=== PATIENT | male | born 1950 | race Caucasian/White ===

== ENCOUNTER 2018-08-10 12:41 | Emergency (ER) | payer MEDICARE, BC ==
[~2018-08-10] VITALS: Ht 182.9 cm; Wt 86.8 kg
[~2018-08-10 12:41] MED LIST: ASPIRIN PO; CIPR250T27 PO; INSU100I9 SQ-INSULIN; INSU100V8 SQ; LOSA1TAB22 PO; METO25TA35 PO; ROSU40TA PO; TAMS0.4C2 PO; TEMA30CA PO; TRAZADONE PO
[2018-08-10] MEDS ORDERED: LORazepam 1MG TABLET PO ONE (13:30)
[2018-08-10] MEDS ORDERED: LORazepam 1MG TABLET ONE (13:35)
--- NOTE | 2018-08-10 13:41 | NUR ---
ASSUMED CARE OF PT. PT PRESENTS TO ED WITH C/O INCREASED ANXIETY, INCREASED BLOOD PRESSURE, AND MINOR ETOH WITHDRAW SYMPTOMS. PT STATES HE WAS AT PCP AND SHE SENT HIM HERE DUE TO HIS SYMPTOMS. PT STATES HE HAS BEEN DECREASING HIS ETOH INTAKE, BUT AT SAME TIME PCP HAS DECREASED HIS ANTI-ANXIETY MEDICATION. STATES CURRENT DOSAGE DOES NOTHING FOR HIM. STATES BECAUSE OF THAT HE HAS INCREASED HIS ETOH USE. STATES HE DRINKS ABOUT 2 GLASSES OF WINE A DAY. LAST DRINK WAS THIS MORNING. MILD AMOUNT OF DISTRESS NOTED. MODERATE ANXIETY NOTED. POC DISCUSSED. PT MEDICATED PER SEP. RIGHTS VERIFIED PRIOR. 3 P'S ADDRESSED. WILL CONTINUE TO MONITOR.
[2018-08-10 13:57] LABS: BASOPHILS # (AUTO) 0.04 x10^3/uL (0-0.1); BASOPHILS % (AUTO) 0 % (0-1); EOSINOPHILS # (AUTO) 0.03 x10^3/uL (0-0.4); EOSINOPHILS % (AUTO) 0 % (1-7); LYMPHOCYTES # (AUTO) 1.62 x10^3/uL (1-3.4); LYMPHOCYTES % (AUTO) 18 % (22-44); MD NO; MEAN CORPUSCULAR HEMOGLOBIN 32.5 pg (27.5-34.5); MEAN CORPUSCULAR HGB CONC 33.5 g/dL (33.2-36.2); MEAN PLATELET VOLUME 7.7 fL (7.4-10.4); MONOCYTES # (AUTO) 0.68 x10^3/uL (0.2-0.8); MONOCYTES % (AUTO) 7 % (2-9); NEUTROPHILS # (AUTO) 6.78 x10^3/uL (1.8-6.8); NEUTROPHILS % (AUTO) 74 % (42-75); PLATELET COUNT 292 x10^3/uL (130-400); RED CELL DISTRIBUTION WIDTH 12.6 % (9.4-14.8)
[2018-08-10 14:04] LABS: ALANINE AMINOTRANSFERASE 71 U/L (12-78); ALBUMIN 4.4 g/dL (3.4-5.0); ANION GAP 10 mmol/L (5-15); CHLORIDE 101 mmol/L (98-107); CREATININE 1.07 mg/dL (0.7-1.3)
[2018-08-10 14:08] LABS: ALKALINE PHOSPHATASE 67 U/L (45-117); BILIRUBIN,TOTAL 0.4 mg/dL (0.2-1.0); TROPONIN I < 0.015 ng/mL (0.000-0.045)
--- NOTE | 2018-08-10 14:20 | NUR ---
MARIZA AT BEDSIDE TO SEE PT.
[2018-08-10 14:30] VITALS: BP 139/78
--- NOTE | 2018-08-10 15:00 | NUR ---
PT GIVEN ED PAPERWORK. PT VERBALIZED UNDERSTANDING. PT AWARE TO FOLLOW UP WITH PCP.
== END 2018-08-10 15:06 | disposition home or self-care (01) ==
LOC: ED 15:00
DX: R42 Dizziness and giddiness (principal); F41.1 Generalized anxiety disorder; F10.10 Alcohol abuse, uncomplicated; E78.00 Pure hypercholesterolemia, unspecified; I10 Essential (primary) hypertension; E11.9 Type 2 diabetes mellitus without complications
CPT/HCPCS: 36415; 80053; 84484; 85025; 93005; 99284

== ENCOUNTER 2020-02-16 16:56 | Observation (INO) | payer BC, MEDICARE ==
[~2020-02-16] VITALS: Ht 182.9 cm; Wt 86.5 kg
--- NOTE | 2020-02-16 17:57 | NUR ---
WRINGER OPERATOR: PT FROM LOBBY TO ROOM AT THIS TIME.
[2020-02-16 19:08] LABS: BASOPHILS # (AUTO) 0.04 x10^3/uL (0-0.1); BASOPHILS % (AUTO) 0 % (0-1); EOSINOPHILS # (AUTO) 0.24 x10^3/uL (0-0.4); EOSINOPHILS % (AUTO) 2 % (1-7); LYMPHOCYTES # (AUTO) 2.27 x10^3/uL (1-3.4); LYMPHOCYTES % (AUTO) 21 % (22-44); MD NO; MEAN CORPUSCULAR HEMOGLOBIN 30.9 pg (27.5-34.5); MEAN CORPUSCULAR HGB CONC 32.6 g/dL (33.2-36.2); MEAN CORPUSCULAR VOLUME 94.9 fL (81-97); MEAN PLATELET VOLUME 7.4 fL (7.4-10.4); MONOCYTES # (AUTO) 0.88 x10^3/uL (0.2-0.8); MONOCYTES % (AUTO) 8 % (2-9); NEUTROPHILS # (AUTO) 7.55 x10^3/uL (1.8-6.8); NEUTROPHILS % (AUTO) 69 % (42-75); PLATELET COUNT 372 x10^3/uL (130-400); RED BLOOD COUNT 4.44 x10^6/uL (4.38-5.82); RED CELL DISTRIBUTION WIDTH 12.9 % (9.4-14.8)
[2020-02-16 19:09] LABS: HCT (SEDRATE) 42.1 % (39.2-51.8)
[2020-02-16 19:12] LABS: ALBUMIN 3.2 g/dL (3.4-5.0); ANION GAP 9 mmol/L (5-15); CALCIUM 8.8 mg/dL (8.5-10.1); CHLORIDE 97 mmol/L (98-107); CREATININE 1.62 mg/dL (0.7-1.3)
[2020-02-16] MEDS ORDERED: SODIUM CHLORIDE 0.9%, 500ML IVBOLUS ONE (20:00)
--- NOTE | 2020-02-16 20:10 | NUR ---
THIS IS A 69 YO MALE COMING IN FOR RIGHT SIDED HEADACHE STARTING LAST WEEK, WHEN HEADACHE STARTED PATIENT LOST VISION IN RIGHT EYE FOR A FEW HOURS, BUT CAME BACK, WITH SAME EVENTS HAPPENING THE FOLLOWING DAY. EYE SIGHT AND VISION IS BACK TO NORMAL AT THIS TIME BUT CONTINUES TO HAVE HEADACHE LOCATED ON RIGHT SIDE OF HEAD. PERRLA, NO NEURO DEFICITS, GROSS NEURO INTACT. NO NYSTAGMUS NOTED, 6 FIELD OF GAZE INTACT. MONITORING IN PLACE, VSS, NADN. CALL LIGHT IN REACH
--- NOTE | 2020-02-16 20:13 | NUR ---
LUNCH BREAK NOTE: DR. FONTENOT AT BEDSIDE. IV STARTED AND FLUIDS RUNNING. PT TO BE ADMITTED.
[2020-02-16] MEDS ORDERED: OMNIPAQUE 350 MG/ML, 75ML BOTTLE ONE (20:50)
--- NOTE | 2020-02-16 21:16 | NUR ---
PATIENT RESTING ON GURNEY, RESPIRATIONS EVEN AND UNLABORED. NATALIA GONZALEZ. CALL LIGHT IN REACH. AWAITING THROUGHPUT RN TO DETERMINE IF PATIENT WILL BE TRANSPORTED UPSTAIRS TONIGHT OR HOLD IN ER
[2020-02-16] MEDS ORDERED: LOSA1TAB2 PO (21:26)
[2020-02-16] MEDS ORDERED: ALPR1TAB2 PO (21:27)
[2020-02-16] MEDS ORDERED: ALPRazolam 1MG TAB PO SCH (22:00)
[2020-02-16] MEDS ORDERED: ATORVASTATIN 80 MG TABLET PO SCH (22:00)
[2020-02-16] MEDS ORDERED: THIAMINE 200 MG in SODIUM CHLORIDE 0.9% 50 ML IV SCH (22:00)
[2020-02-16] MEDS ORDERED: LABETALOL 5MG/ML, 20ML IV PRN (22:00)
[2020-02-16] MEDS ORDERED: INSULIN GLARGINE 100 UNITS/ML, PEN SQ-INSULIN SCH (22:00)
[2020-02-16] MEDS ORDERED: ACETAMINOPHEN 650 MG/20.3 ML UDC PO PRN (22:00)
[2020-02-16] MEDS ORDERED: ONDANSETRON 2MG/ML, 2ML IVPush PRN (22:00)
--- NOTE | 2020-02-16 22:03 | NUR ---
REPORT GIVEN TO ERNESTINA RICH. PLAN OF CARE DISCUSSED
[2020-02-16] MEDS ORDERED: THIAMINE 100MG TABLET PO SCH (23:00)
[2020-02-16] MEDS: CLOPIDOGREL 75 MG TABLET PO SCH (23:15)
[2020-02-16] MEDS: INSULIN LISPRO 100 UNITS/ML, PEN SQ-INSULIN SCH (23:24)
[2020-02-16] MEDS: morphine SULFATE 10 MG/ML, 1ML IVPush PRN (23:24)
[2020-02-16 23:26] VITALS: BP 147/74
[2020-02-17] VITALS (9 sets, daily range): BP systolic 114–169; BP diastolic 72–82
[2020-02-17] MEDS: morphine SULFATE 10 MG/ML, 1ML IVPush PRN ×2 (03:05→06:26)
[2020-02-17 05:32] LABS: BASOPHILS # (AUTO) 0.03 x10^3/uL (0-0.1); BASOPHILS % (AUTO) 0 % (0-1); EOSINOPHILS # (AUTO) 0.19 x10^3/uL (0-0.4); EOSINOPHILS % (AUTO) 2 % (1-7); LYMPHOCYTES # (AUTO) 1.61 x10^3/uL (1-3.4); LYMPHOCYTES % (AUTO) 15 % (22-44); MD NO; MEAN CORPUSCULAR HEMOGLOBIN 31.1 pg (27.5-34.5); MEAN CORPUSCULAR HGB CONC 32.5 g/dL (33.2-36.2); MEAN CORPUSCULAR VOLUME 95.6 fL (81-97); MEAN PLATELET VOLUME 7.3 fL (7.4-10.4); MONOCYTES # (AUTO) 1.01 x10^3/uL (0.2-0.8); MONOCYTES % (AUTO) 10 % (2-9); NEUTROPHILS # (AUTO) 7.65 x10^3/uL (1.8-6.8); NEUTROPHILS % (AUTO) 73 % (42-75); PLATELET COUNT 359 x10^3/uL (130-400); RED BLOOD COUNT 4.41 x10^6/uL (4.38-5.82)
[2020-02-17 05:42] LABS: CHLORIDE 105 mmol/L (98-107)
[2020-02-17 05:53] LABS: ALANINE AMINOTRANSFERASE 19 U/L (12-78); ALBUMIN 3.1 g/dL (3.4-5.0); ALKALINE PHOSPHATASE 85 U/L (45-117); ANION GAP 7 mmol/L (5-15); BILIRUBIN,TOTAL 0.3 mg/dL (0.2-1.0); CALCIUM 8.5 mg/dL (8.5-10.1); CHOL/HDL RATIO 3.1; CHOLESTEROL, TOTAL 94 mg/dL (140-239); CREATININE 0.85 mg/dL (0.7-1.3); HDL CHOL % 32 % (26-37); HDL CHOLESTEROL (DIRECT) 30 mg/dL (40-60); LDL CHOLESTEROL,CALCULATED 45 mg/dL (54-169); LDL/HDL RATIO 1.5 (0.5-3.0); TOTAL PROTEIN 6.9 g/dL (6.4-8.2); TRIGLYCERIDES 96 mg/dL (50-200); VLDL CHOLESTEROL 19 mg/dL (0-25)
[2020-02-17] MEDS: CLOPIDOGREL 75 MG TABLET PO SCH (08:00)
[2020-02-17] MEDS: INSULIN LISPRO 100 UNITS/ML, PEN SQ-INSULIN SCH ×3 (08:02→17:24)
[2020-02-17] MEDS ORDERED: ASPIRIN 81 MG TABLET CHEW PO/NG SCH (09:00)
[2020-02-17] MEDS ORDERED: LOSARTAN 50MG TABLET PO SCH (09:00)
[2020-02-17] MEDS ORDERED: HYDROCHLOROTHIAZIDE 12.5 MG CAPSULE PO SCH (09:00)
--- NOTE | 2020-02-17 09:09 | NUR ---
REC: D/C Home; no further DRUG AND ALCOHOL COUNSELOR indicated Addendum: 02/17/20 at 0910 by Vane RANDALL Amended: Links added.
[2020-02-17] MEDS ORDERED: ASPI-515 PO/NG (17:42)
[2020-02-17] MEDS ORDERED: ATOR-2 PO (17:42)
[2020-02-17] MEDS ORDERED: CLOP75TA PO (17:42)
== END 2020-02-17 19:13 | disposition home or self-care (01) ==
LOC: ED 19:04 → INTOOBSV 20:09 → EDIP 20:09 → 4WST 22:47
PROVIDERS: ADMIT Family Medicine; ATTEND Internal Medicine
DX: G45.9 Transient cerebral ischemic attack, unspecified (principal); N17.9 Acute kidney failure, unspecified; I67.2 Cerebral atherosclerosis; G45.3 Amaurosis fugax; H53.40 Unspecified visual field defects; I10 Essential (primary) hypertension; E11.65 Type 2 diabetes mellitus with hyperglycemia; E78.5 Hyperlipidemia, unspecified; N40.0 Benign prostatic hyperplasia without lower urinary tract symptoms; G47.00 Insomnia, unspecified; R51 Headache; E66.9 Obesity, unspecified; Z79.4 Long term (current) use of insulin; Z91.19 Patient's noncompliance with other medical treatment and regimen; Z66 Do not resuscitate; Z90.5 Acquired absence of kidney; Z79.899 Other long term (current) drug therapy
CPT/HCPCS: 36415; 70450; 70496; 70498; 70551; 80048; 80053; 80061; 82040; 82962; 83036; 85025; 85651; 92610; 93005; 93306; 96374; 96376; 97161; 97166; 99285; G0378; J1815; J2270; J7040; Q9967

== ENCOUNTER 2020-03-14 13:45 | Emergency (ER) | payer MEDICARE ==
[~2020-03-14] VITALS: Ht 182.9 cm; Wt 86.2 kg
[~2020-03-14 13:45] MED LIST changes: +ALPR1TAB2 PO; +ASPI-515 PO/NG; +ATOR-2 PO; +CLOP75TA PO; +LOSA1TAB2 PO
--- NOTE | 2020-03-14 14:16 | NUR ---
ASSUMED CARE OF PT AT THIS TIME FROM TRIAGE VIA WHEELCHAIR. PT ABLE TO AMBULATE IN ROOM WITH STEADY GAIT AND NO ASSISTANCE. 69 Y/O M PRESENTS WITH C/O "LEFT SIDED HUNTER AND MOSQUE PAIN, STRONG ACHE BEHIND LEFT EYE, BLURRED AND DOUBLE VISION THAT COMES AND GOES. WORSE AT NIGHT, NOT SLEEPING." RATES PAIN 3/10. NEURO AND CMS INTACT, ASSESSMENT COMPLETED. COMTINUOUS PULSE OX, CARDIAC AND BP APPLIED. CALL LIGHT WITHIN REACH, FALL PRECAUTIONS IN PLACE.
--- NOTE | 2020-03-14 14:20 | NUR ---
DR. FONTENOT AT BEDSIDE FOR EVALUATION, NO CODE NEURO PER ERP. 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 NEURO OTHERWISE INTACT, EQUAL AND STRONG GRASPS, FLEXION, DORSIFLEXION. SPEECH CLEAR. CMS INTACT.
[2020-03-14] MEDS ORDERED: OXYcodone/APAP 5/325MG TABLET ONE (14:48)
[2020-03-14] MEDS ORDERED: GABAPENTIN 300 MG CAPSULE ONE (14:48)
[2020-03-14] MEDS ORDERED: GABAPENTIN 300 MG CAPSULE PO ONE (15:00)
[2020-03-14] MEDS ORDERED: OXYcodone/APAP 5/325MG TABLET PO ONE (15:00)
[2020-03-14 15:19] VITALS: BP 127/60
--- NOTE | 2020-03-14 15:20 | NUR ---
Patient given discharge instructions and they have confirmed that they understand the instructions. Patient ambulatory with steady gait. Pt denies driving home, ride on way to pick pt up. verbalized understanding of safety for not driving while taking narcotics. Neuro and CMS intact, a&ox4. Reports HUNTER 07/22, pain improved.
== END 2020-03-14 15:37 | disposition home or self-care (01) ==
LOC: ED 15:03
DX: R51 Headache (principal); H57.89 Other specified disorders of eye and adnexa; I10 Essential (primary) hypertension; E11.9 Type 2 diabetes mellitus without complications
CPT/HCPCS: 99283

== ENCOUNTER 2020-03-15 15:47 | Emergency (ER) | payer MEDICARE ==
[~2020-03-15] VITALS: Ht 185.4 cm; Wt 86.7 kg
--- NOTE | 2020-03-15 16:01 | NUR ---
THIS IS A 69 YO M BIB EMS W/ C/O NAUSEA, ANXIETY, 2/10 CHEST DISCOMFORT AND HEADACHE SINCE DC FROM THIS ED YESTERDAY. PT DENIES ABD PAIN/V/D/ SYMPTOMS. PT REPORTS HX OF ANXIETY AND STOPPED TAKING XANAX ABRUPTLY 2 DAYS AGO. PT REQUESTING MEDS FOR ANXIETY, EDUCATED ON ED PROCESS. PIV FIRE FIGHTERS DISPATCHER. PER EMS RECEIVED 1MG VERSED FIRE FIGHTERS DISPATCHER. PT RESTING ON [employer] W/ CALL LIGHT IN REACH, CONNECTED TO ALL MONTIORING, VSS ,NADN. AWAITING ED EVAL.
[2020-03-15] MEDS ORDERED: MAALOX/HYOSCYAMINE/LIDOCAINE 45 ML BTL ONE (16:46)
[2020-03-15] MEDS ORDERED: LORazepam 2 MG/ML, 1ML ONE (16:46)
[2020-03-15] MEDS ORDERED: ONDANSETRON 2MG/ML, 2ML ONE (16:46)
[2020-03-15] MEDS ORDERED: MAALOX/HYOSCYAMINE/LIDOCAINE 45 ML BTL PO ONE (17:00)
[2020-03-15] MEDS ORDERED: LORazepam 2 MG/ML, 1ML IVPush ONE (17:00)
[2020-03-15] MEDS ORDERED: SODIUM CHLORIDE FLUSH 10ML SYR IVF ONE (17:00)
[2020-03-15] MEDS ORDERED: ONDANSETRON 2MG/ML, 2ML IVPush ONE (17:00)
[2020-03-15 17:05] LABS: BASOPHILS # (AUTO) 0.08 x10^3/uL (0-0.1); BASOPHILS % (AUTO) 1 % (0-1); EOSINOPHILS # (AUTO) 0.09 x10^3/uL (0-0.4); EOSINOPHILS % (AUTO) 1 % (1-7); LYMPHOCYTES # (AUTO) 1.91 x10^3/uL (1-3.4); LYMPHOCYTES % (AUTO) 17 % (22-44); MD NO; MEAN CORPUSCULAR HEMOGLOBIN 30.7 pg (27.5-34.5); MEAN CORPUSCULAR HGB CONC 32.8 g/dL (33.2-36.2); MEAN CORPUSCULAR VOLUME 93.5 fL (81-97); MONOCYTES % (AUTO) 9 % (2-9); NEUTROPHILS # (AUTO) 8.35 x10^3/uL (1.8-6.8); NEUTROPHILS % (AUTO) 73 % (42-75); PLATELET COUNT 464 x10^3/uL (130-400); RED BLOOD COUNT 4.71 x10^6/uL (4.38-5.82); RED CELL DISTRIBUTION WIDTH 12.9 % (9.4-14.8)
[2020-03-15 17:17] LABS: ALANINE AMINOTRANSFERASE 28 U/L (12-78); ALBUMIN 3.5 g/dL (3.4-5.0); ANION GAP 9 mmol/L (5-15); CALCIUM 10.4 mg/dL (8.5-10.1); CHLORIDE 97 mmol/L (98-107)
[2020-03-15 17:19] LABS: ALKALINE PHOSPHATASE 85 U/L (45-117); BILIRUBIN,TOTAL 0.4 mg/dL (0.2-1.0); TOTAL PROTEIN 7.7 g/dL (6.4-8.2)
--- NOTE | 2020-03-15 17:54 | NUR ---
AT BEDSIDE FOR RECHECK.
[2020-03-15 17:55] VITALS: BP 151/77
--- NOTE | 2020-03-15 18:44 | NUR ---
Patient given discharge instructions and they have confirmed that they understand the instructions. Patient ambulatory with steady gait. Patient provided w/ taxi voucher.
== END 2020-03-15 18:48 | disposition home or self-care (01) ==
LOC: ED 15:48
DX: K29.00 Acute gastritis without bleeding (principal); F11.23 Opioid dependence with withdrawal; F41.1 Generalized anxiety disorder; I10 Essential (primary) hypertension; E11.9 Type 2 diabetes mellitus without complications; R11.2 Nausea with vomiting, unspecified; R10.9 Unspecified abdominal pain; R51 Headache
CPT/HCPCS: 36415; 80053; 83690; 85025; 96374; 96375; 99284; J2060; J2405

== ENCOUNTER 2020-04-30 17:52 | Emergency (ER) | payer MEDICARE ==
[~2020-04-30] VITALS: Ht 182.9 cm; Wt 90.0 kg
--- NOTE | 2020-04-30 18:16 | NUR ---
samuel. report received from ems. pt stated"i took hundful ativan and benadryl on thursday to sleep and i fell from the chair. i was not able to reach my phone and someone found me today." no trauma/bleeding. +si and -hi. pt's aox4. resps even and unlabored. all monitors in place. denies any physical complaints.
--- NOTE | 2020-04-30 18:26 | NUR ---
PT IN CT AT THIS TIME.
--- NOTE | 2020-04-30 18:39 | NUR ---
pt back to room from ct at this time.
--- NOTE | 2020-04-30 19:00 | NUR ---
report given to jose contreras.
--- NOTE | 2020-04-30 19:08 | NUR ---
REPORT REVIEVED FROM ERNESTINA DUMONT. PT DROWSY A/0X4 AND GIVEN URINAL FOR URINE SAMPLE
[2020-04-30 19:14] LABS: ALANINE AMINOTRANSFERASE 17 U/L (12-78); ALBUMIN 3.1 g/dL (3.4-5.0); ANION GAP 5 mmol/L (5-15); CALCIUM 8.5 mg/dL (8.5-10.1); CHLORIDE 109 mmol/L (98-107)
[2020-04-30 19:17] LABS: ALKALINE PHOSPHATASE 93 U/L (45-117); BILIRUBIN,TOTAL 0.3 mg/dL (0.2-1.0); CREATINE KINASE, TOTAL 98 U/L (39-308); CREATININE 0.85 mg/dL (0.7-1.3); SALICYLATE LEVEL 7.5 mg/dL (2.8-20.0); TOTAL PROTEIN 6.7 g/dL (6.4-8.2)
[2020-04-30 19:22] LABS: BASOPHILS % (AUTO) 1 % (0-1); EOSINOPHILS % (AUTO) 2 % (1-7); LYMPHOCYTES % (AUTO) 14 % (22-44); MEAN CORPUSCULAR HEMOGLOBIN 29.9 pg (27.5-34.5); MEAN CORPUSCULAR HGB CONC 32.4 g/dL (33.2-36.2); MEAN PLATELET VOLUME 7.4 fL (7.4-10.4); MONOCYTES % (AUTO) 9 % (2-9); NEUTROPHILS % (AUTO) 75 % (42-75); PLATELET COUNT 357 x10^3/uL (130-400); RED BLOOD COUNT 4.38 x10^6/uL (4.38-5.82); RED CELL DISTRIBUTION WIDTH 14.3 % (9.4-14.8)
[2020-04-30 19:24] LABS: MD NO
[2020-04-30 19:39] LABS: MICROSCOPIC NOT IND
[2020-04-30 19:51] LABS: AMPHETAMINE SCREEN, URINE Negative (Negative); BARBITURATE SCREEN, URINE Negative (Negative); BENZODIAZEPINE SCREEN, URINE Positive (Negative); CANNABINOID SCREEN, URINE Negative (Negative); COCAINE SCREEN, URINE Negative (Negative); METHADONE SCREEN, URINE Negative (Negative); OPIATE SCREEN, URINE Negative (Negative)
--- NOTE | 2020-04-30 20:21 | NUR ---
PT ASKING FOR SLEEPING PILLS, NOTIFIED BUT STATED SHE WAS NOT COMFORTABLE ORDERING ANTHING AT THIS TIME. PT UPDATED AND ACCEPTING. PT PROVIDED DIAPER PER REQUEST AND PT PUT IT ON HIMSELF. PT GIVEN MEAL TRAY AND IS EATTING IN BED.
[2020-04-30 20:30] VITALS: BP 160/76
--- NOTE | 2020-04-30 21:14 | NUR ---
PT RESTING IN BED, NO NEEDS AT THIS TIME, IN LINE OF SIGHT OF SITTER.
--- NOTE | 2020-04-30 21:26 | NUR ---
BEHAVIORAL HEALTH CYBER SECURITY CONSULTANT AT BEDSIDE
--- NOTE | 2020-04-30 22:05 | NUR ---
PT SPILLED URINAL ON BED, PT CLEANED UP, GIVEN NEW UNDERWEAR, NEW GOWN, AND NEW BEDDING
--- NOTE | 2020-04-30 22:57 | NUR ---
PT RESTING IN BED, RESP EVEN, GIVEN JELLO PER PT REQUEST. NO OTHER NEEDS AT THIS TIME. IN LINE OF SIGHT OF GREER
--- NOTE | 2020-05-01 01:04 | NUR ---
REPORT GIVEN TO BEHAVIORAL HEALTH. ERNESTINA CATES
--- NOTE | 2020-05-01 01:20 | NUR ---
REPORT GIVEN TO ERNESTINA ROTH Addendum: 05/01/20 at 0121 by LESIA FROM [facility]
--- NOTE | 2020-05-01 01:22 | NUR ---
dr johnson at [facility] accepted per Hailee
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
== END 2020-05-01 03:17 ==
LOC: ED 19:05
DX: S80.212A Abrasion, left knee, initial encounter (principal); S80.811A Abrasion, right lower leg, initial encounter; R45.851 Suicidal ideations; R94.31 Abnormal electrocardiogram [ECG] [EKG]; W18.30XA Fall on same level, unspecified, initial encounter; Y93.89 Activity, other specified; Y92.89 Other specified places as the place of occurrence of the external cause; Y99.8 Other external cause status
CPT/HCPCS: 36415; 70450; 71045; 80053; 80307; 81003; 82550; 85025; 93005; 99285

== ENCOUNTER 2020-08-31 13:39 | Emergency (ER) | payer MEDICARE ==
[~2020-08-31] VITALS: Ht 182.9 cm; Wt 83.9 kg
[~2020-08-31 13:39] MED LIST changes: -ASPI-515 PO/NG; +ASPI-963 PO/NG
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
--- NOTE | 2020-08-31 13:57 | NUR ---
TUGBOAT DISPATCHER: EKG DONE IN TRIAGE.
[2020-08-31 16:49] LABS: MICROSCOPIC NOT IND
[2020-08-31 16:57] LABS: BASOPHILS % (AUTO) 1 % (0-1); EOSINOPHILS % (AUTO) 2 % (1-7); LYMPHOCYTES % (AUTO) 18 % (22-44); MEAN CORPUSCULAR HEMOGLOBIN 31.5 pg (27.5-34.5); MEAN CORPUSCULAR HGB CONC 33.3 g/dL (33.2-36.2); MEAN PLATELET VOLUME 7.4 fL (7.4-10.4); MONOCYTES % (AUTO) 8 % (2-9); NEUTROPHILS % (AUTO) 72 % (42-75); PLATELET COUNT 279 x10^3/uL (130-400); RED BLOOD COUNT 4.73 x10^6/uL (4.38-5.82); RED CELL DISTRIBUTION WIDTH 14.4 % (9.4-14.8)
[2020-08-31 16:58] LABS: MD NO
[2020-08-31 17:07] LABS: ALANINE AMINOTRANSFERASE 32 U/L (12-78); ALBUMIN 3.6 g/dL (3.4-5.0); ANION GAP 7 mmol/L (5-15); CHLORIDE 105 mmol/L (98-107)
[2020-08-31 17:10] LABS: ALKALINE PHOSPHATASE 92 U/L (45-117); BILIRUBIN,TOTAL 0.5 mg/dL (0.2-1.0); CREATININE 0.95 mg/dL (0.7-1.3); TOTAL PROTEIN 6.9 g/dL (6.4-8.2)
--- NOTE | 2020-08-31 17:38 | NUR ---
BREAK RN: PATIENT SITTING IN GURNEY, TALKING ON PHONE, DAVIDN, JEFFS, CALL LIGHT WITHIN REACH.
--- NOTE | 2020-08-31 17:39 | NUR ---
BREAK RN: MARIZA AT BEDSIDE TO DISCUSS POC.
--- NOTE | 2020-08-31 17:49 | NUR ---
md in to assess. pt in bed with no signs or symptoms of acute distress noted respirations even and unlabored.
[2020-08-31 18:14] VITALS: BP 141/64
== END 2020-08-31 18:15 | disposition home or self-care (01) ==
LOC: ED 15:53
DX: S29.012A Strain of muscle and tendon of back wall of thorax, initial encounter (principal); K57.32 Diverticulitis of large intestine without perforation or abscess without bleeding; R10.9 Unspecified abdominal pain; E11.9 Type 2 diabetes mellitus without complications; I10 Essential (primary) hypertension; E83.42 Hypomagnesemia; X58.XXXA Exposure to other specified factors, initial encounter; Y93.89 Activity, other specified; Y92.89 Other specified places as the place of occurrence of the external cause; Y99.8 Other external cause status
CPT/HCPCS: 36415; 74176; 80053; 81003; 85025; 93005; 99285

== ENCOUNTER 2020-09-13 15:04 | Emergency (ER) | payer MEDICARE ==
[~2020-09-13] VITALS: Ht 182.9 cm; Wt 82.6 kg
--- NOTE | 2020-09-13 15:29 | NUR ---
PT AMBULATORY TO ROOM 35 W/ C/O DIZZINESS X 3 DAYS AND LOSS OF TASTE. PT STATES NO CLOSE CONTACTS W/ COVID-19. PT RESTING ON LEONARDA. NATALIA. MONITORS APPLIED. VSS.
--- NOTE | 2020-09-13 16:21 | NUR ---
TASK RN: PATIENT AMBULATED TO BATHROOM WITH USE OF CANE AND STEADY GAIT. GAVE PATIENT URINE CUP FOR SAMPLE.
--- NOTE | 2020-09-13 16:29 | NUR ---
TASK RN: PATIENT BACK IN [facility], CONNECTED TO MONITORS, NADN, CALL LIGHT WITHIN REACH. WAITING FOR MD ORDERS.
--- NOTE | 2020-09-13 17:26 | NUR ---
PT RESTING ON GURNEY. NADN. GONZALEZ.
[2020-09-13] MEDS ORDERED: ASPIRIN 81 MG TABLET CHEW ONE (17:28)
[2020-09-13] MEDS ORDERED: ASPIRIN 81 MG TABLET CHEW PO ONE (17:30)
[2020-09-13 17:46] LABS: BASOPHILS % (AUTO) 1 % (0-1); EOSINOPHILS % (AUTO) 2 % (1-7); LYMPHOCYTES % (AUTO) 19 % (22-44); MEAN CORPUSCULAR HEMOGLOBIN 31.5 pg (27.5-34.5); MEAN CORPUSCULAR HGB CONC 33.3 g/dL (33.2-36.2); MEAN PLATELET VOLUME 6.8 fL (7.4-10.4); MONOCYTES % (AUTO) 9 % (2-9); NEUTROPHILS % (AUTO) 70 % (42-75); PLATELET COUNT 395 x10^3/uL (130-400); RED BLOOD COUNT 5.13 x10^6/uL (4.38-5.82)
[2020-09-13 17:47] LABS: MICROSCOPIC NOT IND
[2020-09-13 17:48] LABS: MD NO
--- NOTE | 2020-09-13 17:55 | NUR ---
COVIS TEST COLLECTED, LABELED, AND WALKED TO LAB.
[2020-09-13 17:59] LABS: ALANINE AMINOTRANSFERASE 49 U/L (12-78); ALBUMIN 3.7 g/dL (3.4-5.0); ANION GAP 6 mmol/L (5-15); CALCIUM 8.5 mg/dL (8.5-10.1); CHLORIDE 105 mmol/L (98-107); CREATININE 0.91 mg/dL (0.7-1.3)
[2020-09-13 18:03] LABS: ALKALINE PHOSPHATASE 74 U/L (45-117); BILIRUBIN,TOTAL 0.2 mg/dL (0.2-1.0); TOTAL PROTEIN 7.1 g/dL (6.4-8.2); TROPONIN I < 0.015 ng/mL (0.000-0.045)
--- NOTE | 2020-09-13 18:17 | NUR ---
PT CHART REVIEWED AND PLACED FOR RECHECK.
--- NOTE | 2020-09-13 18:23 | NUR ---
PT RESTING ON GURNEY. NADN. GONZALEZ.
--- NOTE | 2020-09-13 18:27 | NUR ---
NANUT FLORENCIA AT BEDSIDE FOR RE-EVAL.
[2020-09-13] MEDS ORDERED: MECLIZINE CHEWABLE 25 MG TAB PO ONE (19:00)
[2020-09-13] MEDS ORDERED: MECLIZINE CHEWABLE 25 MG TAB ONE (19:01)
[2020-09-13 19:25] VITALS: BP 170/86
--- NOTE | 2020-09-13 19:25 | NUR ---
PT RESTING ON GURNEY. NADN. GONZALEZ.
== END 2020-09-13 19:43 | disposition home or self-care (01) ==
LOC: ED 19:35
DX: R42 Dizziness and giddiness (principal); Z20.822 Contact with and (suspected) exposure to COVID-19; R55 Syncope and collapse; R07.89 Other chest pain; M54.5 Low back pain; R10.9 Unspecified abdominal pain; I10 Essential (primary) hypertension; E11.9 Type 2 diabetes mellitus without complications; R00.2 Palpitations; Z79.899 Other long term (current) drug therapy
CPT/HCPCS: 36415; 71045; 80053; 81003; 84484; 85025; 93005; 99285; U0003